=== PATIENT | female | born 1945 | race Caucasian/White ===

== ENCOUNTER 2017-05-27 09:37 | Emergency (ER) | payer MEDICARE ==
[2017-05-27 09:53] VITALS: BP 138/71
--- NOTE | 2017-05-27 10:38 | UC ---
Upper Extremity HPI - HPI Summary HPI Summary: right hand and wrist pain for the past few days. this is worse at night. It involves right thumb numbness. right wrist prior surgery. - History of Current Complaint Chief Complaint: UCUpperExtremity Stated Complaint: RIGHT HAND PAIN Time Seen by Provider: 05/27/17 10:22 Hx Obtained From: Patient ?: No Onset/Duration: Gradual Onset, Lasting Days Severity Initially: Moderate Severity Currently: Moderate Character: Dull, Aching Aggravating Factor(s): Movement Alleviating Factor(s): Rest Associated Signs And Symptoms: Positive: Numbness/Tingling Related History: Dominant Hand Right - Allergies/Home Medications Allergies/Adverse Reactions: Allergies Allergy/AdvReac Type Severity Reaction Status Date / Time No Known Allergies Allergy Verified 05/27/17 09:45 Home Medications: Home Medications Enalapril TAB* [Vasotec TAB*] 5 mg PO DAILY 05/27/17 [History Confirmed 05/27/17 ] Ibuprofen TAB* [Motrin TAB* 800 MG] 800 mg PO Q8H PRN 05/27/17 [History Confirmed 05/27/17] PMH/Surg Hx/FS Hx/Imm Hx Previously Healthy: No - prior wrist surgery. - Surgical History Surgical History: Yes Surgery Procedure, Year, and Place: hysterectomy 1974, bunion surgery x2, tonsillectomy, trigger finger - Family History Known Family History: Positive: Other - no related fh. - Social History Alcohol Use: Rare Substance Use Type: None Smoking Status (MU): Never Smoked Tobacco Review of Systems Musculoskeletal: Arthralgia All Other Systems Reviewed And Are Negative: Yes Physical Exam Triage Information Reviewed: Yes Appearance: Well-Appearing, No Pain Distress, Well-Nourished Vital Signs: Initial Vital Signs Temp 98.9 F 05/27/17 09:47 Pulse 67 05/27/17 09:47 Resp 16 05/27/17 09:47 BP 138/71 05/27/17 09:47 Pulse Ox 99 05/27/17 09:47 Vital Signs Reviewed: Yes Eye Exam: Normal ENT Exam: Normal Neck exam: Normal Respiratory Exam: Normal Cardiovascular Exam: Normal Abdominal Exam: Normal Musculoskeletal Exam: Other - right wrist positive tinnels. positive phalens. there is some thenar emminence atrophy. Psychological Exam: Normal Skin Exam: Normal Upper Extremity Course/Dx - Differential Dx/Diagnosis Differential Diagnosis/HQI/PQRI: Strain, Sprain Provider Diagnoses: carpal tunnel. Discharge - Discharge Plan Condition: Good Disposition: HOME Prescriptions: traMADol TAB* [Ultram*] 50 mg PO Q12H PRN #20 tab MDD 2 PRN Reason: Pain Patient Education Materials: Paresthesia (ED) Referrals: Mary Schaeffer MD [Primary Care Provider] - Erika Barriga MD [Medical Doctor] -
== END 2017-05-27 10:38 | disposition home or self-care (01) ==
LOC: UCCORT 09:37
DX: R20.9 Unspecified disturbances of skin sensation (principal)
CPT/HCPCS: 99203; G0463